=== PATIENT | female | born 1965 | race Caucasian/White ===

== ENCOUNTER 2021-02-05 08:00 | Emergency (ER) | payer OTHER, SELFPAY ==
[2021-02-05] VITALS (8 sets, daily range): BP systolic 138–202; BP diastolic 77–115; PULSE 65–87; RESP 20; TEMP 36.6; O2SAT 97–100
--- NOTE | ~2021-02-05 | XR_ITS ---
EXAMINATION: XR chest 1V portable EXAM DATE: 02/05/2021 08:36 INDICATION: Dizziness . TECHNIQUE: Portable AP frontal chest x-ray was obtained. There is no prior study for comparison. FINDINGS: The lungs are clear. There are no pleural effusions. Cardiac silhouette is prominent but magnified on this AP technique. There is no pneumothorax suspected. Some bridging mid thoracic end plate osteophytes. There is aortic arteriosclerosis. IMPRESSION: No acute cardiopulmonary findings. Reviewed, dictated and finalized at location A.
--- NOTE | 2021-02-05 08:07 | ECG_ITS ---
Measurements Intervals [place] Rate: 71 P: 63 OK: 158 QRS: 84 QRSD: 92 T: 54 QT: 407 QTc: 443 Interpretive Statements SINUS RHYTHM RIGHT AXIS DEVIATION POSSIBLE LEFT ATRIAL ENLARGEMENT INCOMPLETE RIGHT BUNDLE BRANCH BLOCK DELAYED PRECORDIAL R/S TRANSITION BASELINE ARTIFACT- I, II, III, AVR, AVL, AVF, V2-V6 BORDERLINE ECG Electronically Signed On 02-05-2021 8:38:02 CDT by Ramiro Weldon D.O.
--- NOTE | 2021-02-05 08:26 | ED.DIZZY ---
HPI - Dizziness General Chief Complaint: Dizziness Stated Complaint: WEAKNESS/DIZZY Time Seen by Provider: 02/05/21 08:01 Source: patient Mode of arrival: ambulatory Limitations: no limitations History of Present Illness HPI Narrative: This is a 55 year old female with history of DM and hypertension who presents for evaluation of dizziness. She was at work when she developed dizziness. She states she has been working since 530 am and she has been standing for 1.5 hours. She reports became lightheaded while she was standing suddenly, and she describes lightheaded as being hungry. She then reports she became dizzy in which she felt like she was going to fall over. She reports this feeling last a couple minutes. She states she sat down and then she stood back up. Upon standing again, she felt dizzy again. She reports she was told that her heart rate was fast but she denies feeling heart racing or palpitations. She denies chest pain, nausea, vomiting, diarrhea, abdominal pain, headache. She reports brief episode of shortness of breath. She has no symptoms now. She states she has history of hypertension but she was just started on lisinopril on Monday. Her BP at home as been in 200s. Related Data Home Medications Medication Instructions Recorded Confirmed lisinopril 10 mg PO DAILY 02/05/21 02/05/21 Allergies Allergy/AdvReac Type Severity Reaction Status Date / Time codeine Allergy Unknown Verified 02/05/21 08:05 Penicillins Allergy Unknown Verified 02/05/21 08:05 PMFSH Past Medical History Medical History (Updated 02/05/21 @ 17:58 by Cindy Brannon MD) Diabetes mellitus Hypertension Surgical History Surgical History (Updated 02/05/21 @ 17:59 by Cindy Brannon MD) No pertinent past surgical history Social History Social History (Updated 02/05/21 @ 17:59 by Cindy Brannon MD) Smoking status: Never smoker Gender identity (if verbalized by the patient): Female Exam Narrative: Exam Narrative: GENERAL: Well-appearing, well-nourished, and in no acute distress. HEAD: Normocephalic, atraumatic EYES: PERRLA and EOMI, conjunctiva clear without discharge EARS: TM's clear bilaterally without erythema or dullness NOSE: Nares clear, no rhinorrhea or epistaxis THROAT:Mucous membranes moist, Oropharynx normal without erythema, exudate, peritonsillar swelling or fluctuance NECK: Supple, without lymphadenopathy or mass RESPIRATORY: No respiratory distress, Airway patent, Respirations non-labored, Clear to auscultation without rales, rhonchi or wheeze HEART: Regular rate and rhythm. No murmur heard. Normal peripheral pulses. ABDOMEN: Soft, nontender, nondistended, normal active bowel sounds. No masses. No rebound or guarding, No organomegaly. EXTREMITIES: No edema, normal strength with full range of motion. SKIN: Warm, dry, normal color without rash NEURO: Alert and oriented x3. CN 2-12 grossly intact. No focal deficits. normal finger to nose, normal gait PSYCH: Normal mood and affect. Const: General: no acute distress and alert Orientation/consciousness: patient oriented x3 Course Reevaluation(s) Reevaluation #1: PAtient states she feels fine. She has no symptoms. She denies dizziness . I reviewed labs and imaging. She will follow up with PCP regarding BP and today's visit. Date: 02/05/21 Time: 11:43 Vital Signs Vital signs: Vital Signs Temperature 97.9 F 02/05/21 07:57 Pulse Rate 74 02/05/21 07:57 Respiratory Rate 20 02/05/21 07:57 Blood Pressure 202/79 H 02/05/21 07:57 Pulse Oximetry 100 02/05/21 07:57 Temperature 97.9 F 02/05/21 07:57 Pulse Rate 87 02/05/21 12:14 Respiratory Rate 20 02/05/21 12:14 Blood Pressure 167/97 H 02/05/21 12:14 Pulse Oximetry 99 02/05/21 12:14 MDM - Dizziness Lab Data Attestation: I reviewed the patient's lab results. Result diagrams: 02/05/21 08:42 02/05/21 08:42 Labs: Lab Results
[2021-02-05 08:50] LABS: Basophils Percent Auto 0.4 % (0.2-1.2); Eosinophils Absolute Auto 0.1 K/mm3 (0-0.3); Eosinophils Percent Auto 1.4 % (0-4.4); Hemoglobin 14.4 g/dL (12.0-15.0); Immature Granulocyte Absolute 0.02 K/mm3 (0.00-0.031); Immature Granulocyte Percent A 0.3 % (0-0.5); Lymphocytes Absolute Auto 1.67 K/mm3 (0.9-3.2); Lymphocytes Percent Auto 22.8 % (18.3-44.2); Mean Corpuscular HGB Conc 34.3 g/dl (32-36); Mean Corpuscular Hemoglobin 33.4 pg (26-34); Mean Corpuscular Volume 97.4 fl (80-100); Mean Platelet Volume 10.9 fl (7.4-10.4); Monocytes Absolute Auto 0.7 K/mm3 (0.1-0.6); Monocytes Percent Auto 9.2 % (2.6-8.5); Neutrophils Absolute Auto 4.8 K/mm3 (1.3-6.7); Neutrophils Percent Auto 65.9 % (45.5-73.1); Platelet Count Result 163 k/mm3 (150-375); Red Blood Count 4.31 M/mm3 (4.2-5.4); Red Cell Distribution Width 13.1 % (11.5-14.5); White Blood Count 7.3 K/mm3 (4.5-10.0)
[2021-02-05 09:00] LABS: Alanine Aminotransferase 22 U/L (4-35); Albumin Level 4.4 g/dL (3.5-5.1); Alkaline Phosphatase 76 U/L (38-126); Anion Gap 2 mmol/L (8-16); Aspartate Amino Transferase 28 U/L (14-36); Bilirubin,Total 0.4 mg/dL (0.2-1.3); Blood Urea Nitrogen 10 mg/dL (7-17); Calcium 8.7 mg/dL (8.4-10.2); Carbon Dioxide 30 mmol/L (22-30); Chloride 105 mmol/L (98-107); Estimated CRCL calculation 115 ml/min; Estimated Glomerular Filt Rate > 60; Glucose 132 mg/dL (65-105); INR 0.9; Partial Thromboplastin Time 25.3 SECONDS (22.3-36.8); Potassium 4.1 mmol/L (3.4-5.0); Prothrombin Time 12.8 Seconds (11.1-14.7); Sodium 137 mmol/L (137-145)
[2021-02-05 09:12] LABS: Troponin I < 0.012 ng/mL (0.000-0.034)
[2021-02-05 09:31] LABS: Add Urine Microscopic? YES; Appearance Urine Cloudy (Clear); Bacteria Urine Trace /hpf; Bilirubin Urine Negative (Negative); Blood Urine 1+ (Negative); Color Urine Yellow (Yellow); Glucose Urine UA Negative (Negative); Ketones Urine Negative (Negative); Leukocyte Esterase Ur 1+ LEU/UL (Negative); Mucus Urine Rare /lpf; Nitrate Urine Negative (Negative); Protein Urine Negative (Negative); Specific Grav Ur 1.009 (1.001-1.035); Squamous Epithelial Cell Urine Many /hpf (Few); Urobilinogen Urine Negative mg/dL (<2.0)
== END 2021-02-05 12:16 | disposition home or self-care (01) ==
PROVIDERS: Emergency Provider General Practice
DX: R42 Dizziness and giddiness (principal); E11.9 Type 2 diabetes mellitus without complications; I10 Essential (primary) hypertension; I45.10 Unspecified right bundle-branch block; R94.31 Abnormal electrocardiogram [ECG] [EKG]
CPT/HCPCS: 36415; 71045; 80053; 81001; 84484; 85025; 85610; 85730; 87086; 93005; 99284